=== PATIENT | female | born 1990 | race African-American/Black ===

== ENCOUNTER 2018-01-11 05:31 | Observation (INO) | payer MEDICAID ==
[~2018-01-11] VITALS: Ht 172.7 cm; Wt 72.0 kg
[2018-01-11 05:40] VITALS: BP 112/63
[2018-01-11] MEDS ORDERED: PNV1TABL76 MT (07:37)
== END 2018-01-11 08:10 | disposition home or self-care (01) ==
LOC: ER 07:14 → L&D 07:17
PROVIDERS: ADMIT Specialist; ATTEND Specialist
DX: O99.513 Diseases of the respiratory system complicating pregnancy, third trimester (principal); R05 Cough; R06.02 Shortness of breath; Z3A.28 28 weeks gestation of pregnancy
CPT/HCPCS: 99281; G0378